=== PATIENT | female | born 1960 | race Caucasian/White ===

== ENCOUNTER 2025-03-20 09:35 | Inpatient (IN) | payer MEDICARE, MEDICAID ==
[~2025-03-20] VITALS: Ht 167.6 cm; Wt 77.3 kg
[~2025-03-20 09:35] MED LIST: ALBU2.5V9 IH; BACL20TA PO; DIPH25CA52 PO; DOXE100C21; ESCI20TA39 PO; HYDR-4353 PO; LEVO150T8 PO; OMEP20CA16 PO; SIMV-45 PO; TRAZ-256 PO
--- NOTE | 2025-03-20 10:19 | Physician Documentation ---
History of Present Illness ~ General Chief Complaint: Multiple Medical Complaints Stated Complaint: NO COMPLAINT Time Seen by MD: 09:43 Primary Medical Doctor: Carrie Source: patient, group home records (snf reports diagnosis of cholecystitis from prior hospitalization) History of Present Illness Initial Comments 64-year-old history of cholecystitis, renal calculus, O2 dependence, GERD, CHF, COPD, panic disorder, cognitive deficit, dysphagia, pulmonary embolism on elliquis p/w diarrhea. Unable to provide much history. Medication Reconciliation Allergies: Coded Allergies: erythromycin base (Verified Allergy, Severe, 09/01/14) clonazepam (Unverified Allergy, Unknown, 01/22/16) duloxetine (Unverified Allergy, Unknown, 01/22/16) Scheduled Baclofen (Baclofen), 1 TABLET PO BID, (Reported) Doxepin HCl (Doxepin HCl), DAILY, (Reported) Escitalopram Oxalate (Escitalopram Oxalate), 1 TABLET PO DAILY, (Reported) Levothyroxine Sodium (Levothyroxine Sodium), 1 TABLET PO DAILY, (Reported) Omeprazole (Omeprazole), 1 CAP PO DAILY, (Reported) Simvastatin (Simvastatin), 40 MG PO HS, (Reported) Trazodone HCl (Trazodone HCl), 1 TABLET PO TID, (Reported) Scheduled PRN Albuterol Sulfate (Albuterol Sulfate), 2.5 MG IH Q4H PRN for SOB or wheezing, (Reported) Diphenhydramine HCl (Diphenhydramine HCl), 1 CAP PO QID PRN for itching, (Reported) Hydrocodone Bit/Acetaminophen ([place] 10-325 Tablet), 1 TABLET PO BID PRN for moderate or severe pain, (Reported) Past Medical History Past Medical History: COPD, Thyroid (unspecified), Chronic Pain, Chronic Back Pain, Anxiety, Depression, Panic Disorder Past Surgical History: , tubal ligation Patient History: (COPD) Chronic obstructive lung disease Alcohol Use: None Drug Use: none Lives with: Family Lives In: Home Review of Systems Unable to obtain complete ROS: altered mental status Physical Exam Physical Exam Vital Signs: Temperature: 98.2, Source: Axillary, Heart Rate: 72, Respiratory Rate: 15, BP: 119/52, Pulse Oximetry: 98, Weight: 77.270 Physical Exam chronically ill no jvd moist mucous membranes awake alert moving all extremities Abdomen no abdominal tenderness no guarding no rebound Skin pink warm dry well-perfused no rash Progress Results/Orders Results/Orders Orders - SHAISTA MARS MD Covid19 Binax Poc Result Entry (03/20/25 10:15) Chest,Single View (03/20/25 10:15) Electrocardiogram (03/20/25 ) Ct Abdomen Pelvis (03/20/25 14:05) Straight Cath For Urine Sample (03/20/25 15:56) Ultrasound Of Abdomen (03/20/25 15:56) Cult Urine + [place] [address] (03/20/25 17:01) Completed Orders - SHAISTA MARS MD Cbc/Diff (03/20/25 10:15) CMP (03/20/25 10:15) Lipase (03/20/25 10:15) LA (03/20/25 10:15) Ringers Solution, Lacted (Lactated Ringe (03/20/25 10:15) Ondansetron Inj. (Zofran 4mg/2ml Vial) (03/20/25 10:15) Chest,Single View (03/20/25 10:15) PBNP (03/20/25 10:15) Hs Troponin I W Calculations (03/20/25 10:15) Ct Abdomen Pelvis (03/20/25 14:05) Iohexol 300mg/Ml 100ml Inj. (Omnipaque-3 (03/20/25 13:57) Ceftriaxone 2gm/D5w 50ml Bag (Rocephin 2 (03/20/25 16:30) Ua W/Microscopic, Cult If Ind (03/20/25 16:28) Medications Received in ER Medications (Trade) Dose Ordered Sig/Felisa Route PRN Reason Start Time Stop Time Status Last Admin Dose Admin Lactated Ringer's 1,000 ml @ 1,000 mls/hr ONCE ONCE IV 03/20/25 10:15 03/20/25 11:14 DC 03/20/25 10:55 1,000 MLS/HR (Zofran 4mg/2ml vial) 4 mg ONCE ONCE IV 03/20/25 10:15 03/20/25 10:18 DC 03/20/25 10:54 4 MG Ceftriaxone Sodium/Dextrose 50 ml @ 100 mls/hr ONCE ONCE IV 03/20/25 16:30 03/20/25 16:59 DC 03/20/25 17:44 100 MLS/HR Vital Signs 03/20/25 03/20/25 03/20/25 03/20/25 09:38 10:59 13:04 14:35 Temp 98.2 Pulse 72 77 81 82 Resp 15 22 22 20 B/P (MAP) 119/52 117/48 (71) 120/65 (83) 125/67 (86) Pulse Ox 98 100 91 96 O2 Flow Rate 3.0 4.0 4.0 03/20/25 03/20/25 03/20/25 15:37 16:43 17:47 Pulse 83 73 74 Resp 20 20 11 B/P (MAP) 122/58 (79) 124/64 (84) 121/58 (79) Pulse Ox 94 100 99 O2 Flow Rate 3.0 3.0 2.0 Laboratory Tests Test 03/20/25 10:40 03/20/25 11:00 03/20/25 16:28 White Blood Count 4.6 Red Blood Count 3.51 L Hemoglobin 10.3 L Hematocrit 31.8 L Mean Corpuscular Volume 90.7 Mean Corpuscular Hemoglobin 29.3 Mean Corpuscular Hemoglobin Concent 32.3 L Red Cell Distribution Width 15.6 H Platelet Count 502 H Mean Platelet Volume 6.4 L Neutrophils (%) (Auto) 72.9 Lymphocytes (%) (Auto) 11.6 L Monocytes (%) (Auto) 9.2 Eosinophils (%) (Auto) 4.2 Basophils (%) (Auto) 2.1 H Neutrophils # (Auto) 3.3 Lymphocytes # (Auto) 0.5 L Monocytes # (Auto) 0.4 Eosinophils # (Auto) 0.2 Basophils # (Auto) 0.1 CBC Comment Sodium Level 140 Potassium Level 3.9 Chloride Level 99 Carbon Dioxide Level 37.6 H Anion Gap 3 L Blood Urea Nitrogen 15 Creatinine 0.71 Estimated GFR/1.73 m2 82 BUN/Creatinine Ratio 21.1 H Glucose Level 96 Lactic Acid Level 0.7 Calcium Level 9.0 Total Bilirubin 0.3 Aspartate Amino Transf (AST/SGOT) 20 Alanine Aminotransferase (ALT/SGPT) 17 Alkaline Phosphatase 101 Troponin I High Sensitivity 8 Pro-B-Type Natriuretic Peptide 1346 H Total Protein 7.5 Albumin 2.8 L Globulin 4.7 H Albumin/Globulin Ratio 0.6 L Lipase 89 H Chemistry Comments SARS-CoV-2 Antigen (Rapid) Negative Urine Specimen Description Straight cath Urine Color Yellow Urine Clarity Turbid Urine pH 6.5 Urine Specific [place] 1.015 Urine Protein 100 H Urine Glucose (UA) Negative Urine Ketones Negative Urine Occult Blood Large H Urine Nitrite Negative Urine Bilirubin Small Urine Urobilinogen 1.0 Urine Leukocyte Esterase Trace H Urine RBC Tntc Urine WBC Tntc H Urine Squamous Epithelial Cells Few Urine Amorphous Phosphates 1+ Urine Bacteria 3+ Urine Culture Indicated Indicated Volume Urine Centrifuged 10 ml Urine Comment Microbiology Date/Time Source Procedure Growth Status 03/20/25 17:01 Urine Straight Cath Urine Culture - Preliminary Culture received. Resulted Medical Decision Making Additional information obtaine: N/A Findings 64-year-old female history of cognitive dysfunction, recent cholecystitis presenting for diarrhea. She is altered and unable to provide history only states that she does not feel well. no fever no abdominal tenderness certainl y no right upper quadrant tenderness. Labs and chest x-ray showing CHF exacerbation. She is on 3-4 L which apparently is her baseline. She does take her NC off frequently while here. CT showing questionable cholecystitis with pericholecystic fluid however she definitely has no right upper quadrant tenderness. She does however have shaila pyuria. Symptoms consistent wit urinary tract infection with metabolic encephalopathy. She will be admitted for further management Differential Diagnosis Cholecystitis, cystitis other causes of diarrhea Departure Disposition: ADMITTED INPATIENT Admitted to Inpatient Unit: to hospitalist Impression: Primary Impression: Metabolic encephalopathy Additional Impression: Cystitis Referrals: NO PRIMARY CARE PROVIDER (PCP) Signature Scribe Signature: deep Attestation: SHAISTA Oneil MD Mar 20, 2025 10:19
--- NOTE | 2025-03-20 10:51 | RADIOLOGY REPORT ---
DI CHEST,SINGLE VIEW, HISTORY: cough COMPARISON: None None TECHNICAL DATA: 1 view of the chest was obtained. FINDINGS: Lines and tubes: None Cardiomediastinal silhouette: Enlarged Pulmonary vasculature: Prominent Lung expansion: Low Lung airspace: normal Lung interstitium: normal Pleura: normal Pneumothorax: no Bones: Unremarkable Other: no IMPRESSION: Cardiomegaly with pulmonary vascular congestion.
[2025-03-20] MEDS: ondansetron/PF 4mg/2ml inj IV ONE (10:54)
[2025-03-20] MEDS: ringers solution, lacted 1,000 ML IV ONE (10:55)
[2025-03-20 10:57] LABS: MEAN PLATELET VOLUME 6.4 FL (7.4-10.4); RED CELL DISTRIBUTION WIDTH 15.6 % (11.5-14.5)
[2025-03-20 11:10] LABS: CREATININE 0.71 MG/DL (0.40-0.90); TOTAL CARBON DIOXIDE 37.6 MMOL/L (24-32); eCRCL 73 ML/MIN; eGFR 82 ML/MIN
[2025-03-20 11:18] LABS: PRO BRAIN NATRIURETIC PEPTIDE 1346 PG/ML (0-125)
[2025-03-20] MEDS ORDERED: iohexol 300mg/ml 100ml inj. ONE (13:57)
--- NOTE | 2025-03-20 14:34 | RADIOLOGY REPORT ---
Indication: abdominal pain Technique: CT axial images of the abdomen and pelvis are obtained with intravenous contrast. Coronal and sagittal reformats were obtained. Radiation Dose Information: CTDI volume is 30 mGy. Dose-length product is 1792 mGy*cm Comparison: None FINDINGS: Small pericardial effusion. Heart size at the upper limits of normal. Bilateral lower lobe consolidation/atelectasis. Small to moderate left and tiny right pleural effusions. Adrenal glands, spleen and pancreas unremarkable. Cholelithiasis. Gallbladder wall thickening. Hydropic gallbladder with pericholecystic stranding, gallbladder wall hyperemia. No enhancing hepatic lesion. Left kidney demonstrates no hydronephrosis. The right kidney demonstrates [id number] hydronephrosis secondary to a renal pelvic/ proximal ureteral calculus measuring 2.3 cm. There is associated hyperemia of the right ureter. Small hiatal hernia. Stomach is partially distended. Small bowel loops are normal in caliber. Rectal wall thickening, hyperemia with surrounding stranding, Presacral edema. There are also segments of large bowel wall thickening, hyperemia and surrounding stranding, mucosal hyperemia. No secondary signs for appendicitis. Abdominal aortic atherosclerotic disease. Bladder is partially distended. Trace free pelvic fluid. No inguinal lymphadenopathy. [id number] bilateral sacroiliac degenerative joint disease. Moderate to severe thoracolumbar degenerative disc disease. Chronic L2 compression deformity with 20% loss height. IMPRESSION: Cholelithiasis with hydropic/ distended gallbladder, gallbladder wall thickening and hyperemia, pericholecystic stranding. Findings are concerning for cholecystitis. Recommend HIDA scan to evaluate. Kyhv-jg-esansfbg right hydronephrosis secondary to a proximal right ureteral /renal pelvic calculus measuring 2.3 cm. There is associated hyperemia of the right ureter likely representing resultant urinary tract infection. Rectal wall thickening, mucosal hyperemia which can be seen with proctocolitis. Multiple other segments of large bowel wall thickening, mucosal hyperemia and surrounding stranding which can be seen with colitis, inflammatory bowel disease. Bilateral lower lobe consolidation/ atelectasis and small to moderate left, tiny right pleural effusions. Small hiatal hernia. Other findings as described.
[2025-03-20 16:53] LABS: LEUKOCYTE ESTERASE ,URINE TRACE (Neg); NITRITES, URINE NEGATIVE (Neg); OCCULT BLOOD,URINE LARGE (Neg)
[2025-03-20 16:55] LABS: UA COLLECTION TYPE STRAIGHT CATH
[2025-03-20 17:01] LABS: AMORPHOUS PHOSPHATES 1+; SQUAMOUS EPITHELIAL CELL,UR FEW /LPF (FEW)
[2025-03-20] MEDS: CefTRIAXone 2gm/D5W 50ml BAG 50 ML IV ONE (17:44)
[2025-03-20] MEDS ORDERED: potassium Cl 40MEQ/1/2NS 520ml 520 ML IV PRN (20:15)
[2025-03-20] MEDS ORDERED: magnesium sulf-water 2g/50mL 50 ML IV PRN (20:15)
[2025-03-20] MEDS ORDERED: magnesium hydroxide 30ml (MOM) UD suspension PO PRN (20:15)
[2025-03-20] MEDS ORDERED: magnesium sulf-water 4G/100mL 100 ML IV PRN (20:15)
[2025-03-20] MEDS ORDERED: ondansetron/PF 4mg/2ml inj IV PRN (20:15)
[2025-03-20] MEDS ORDERED: potassium Cl 20 mEq SR tablet PO PRN ×2 (20:15)
[2025-03-20] MEDS ORDERED: magnesium Cl slow-release 64mg tablet PO PRN (20:15)
[2025-03-20] MEDS ORDERED: mag hydrox/Alum hydrox/simeth 30ml oral suspension PO PRN (20:15)
[2025-03-20] MEDS: ringers solution, lacted 1,000 ML IV SCH (20:35)
--- NOTE | 2025-03-20 20:42 | HISTORY AND PHYSICAL-Residence ---
History & Physical Providers to CC Resident Creating Document: YAQUELINLAILAI BALDEV ~ History of Present Illness Primary Medical Doctor: Carrie Reason for Admit\Complaint: Diarrhea, AMS History of Present Illness 64-year-old female with history of cognitive dysfunction, recent cholecystitis, COPD, CHF, renal calculus, pulmonary embolism, hypothyroidism came to the ED from nursing facility for complaints of diarrhea. Patient was altered and drowsy, unable to obtain history from patient. History was obtained from ER staff. As per ER physician, patient stated that she was not feeling well and could not provide further history. As per her nursing facility records,she is on 3-4 L oxygen for COPD and Eliquis for pulmonary embolism. It is not clear if patient has urinary symptoms, but urinalysis is positive for UTI. She has no fever. She recently had cholecystitis, but there is no right upper quadrant tenderness. Nursing facility records show dark black stools. Allergies: Coded Allergies: erythromycin base (Verified Allergy, Severe, 09/01/14) clonazepam (Unverified Allergy, Unknown, 01/22/16) duloxetine (Unverified Allergy, Unknown, 01/22/16) Home Medications Home Medications Active Reported Trazodone HCl 100 Mg Tablet 1 Tablet PO TID Escitalopram Oxalate 20 Mg Tablet 1 Tablet PO DAILY Doxepin HCl 100 Mg Capsule DAILY Baclofen 20 Mg Tablet 1 Tablet PO BID Levothyroxine Sodium 150 Mcg Tablet 1 Tablet PO DAILY Simvastatin 40 Mg Tablet 40 Mg PO HS Omeprazole 20 Mg Capsule.dr 1 Cap PO DAILY Albuterol Sulfate (Albuterol) 2.5 Mg/3 Ml Vial.neb 2.5 Mg IH Q4H PRN Diphenhydramine HCl 25 Mg Capsule 1 Cap PO QID PRN [place] 10-325 Tablet (Acetaminophen/Hydrocodone Bitart) 1 Each Tablet 1 Tablet PO BID PRN Past Medical History Past Medical History Recent cholecystitis Renal calculus Cognitive dysfunction CHF COPD, on 3 L oxygen Hyperlipidemia GERD Dysphagia Anxiety/depression Panic disorder Chronic back pain Pulmonary embolism Hypothyroidism Pressure ulcer of right buttock Past Surgical History Surgical History Comment Tubal ligation Unable to obtain further surgical history Family History Family History: (COPD) Chronic obstructive lung disease Past Social History Social History Comment Unable to obtain social history Patient lives in nursing facility Alcohol Use: None Drug Use: None Lives with: Family Lives In: Home ROS ROS Unable to obtain ROS, patient is altered and drowsy Unable to obtain: altered mental status Exam Vitals: Vital Signs Date Time Temp Pulse Resp B/P (MAP) Pulse Ox O2 Delivery O2 Flow Rate FiO2 03/20/25 17:47 74 11 121/58 (79) 99 2.0 03/20/25 09:38 98.2 General: Altered and drowsy, resting in the bed, in no acute distress HEENT: Atraumatic, normocephalic, anicteric sclera ; pink conjunctiva, moist mucous membrane Neck: Trachea midline. Supple, full range of motion, no JVD Cardiac: Regular rhythm, regular rate with no murmurs all over the precordium. Respiratory: Equal breath sounds bilaterally, no tachypnea, no wheezing ,rub or rales Gastrointestinal: Abdomen symmetric, non-distended, soft, non-tender, normal bowel sounds, no masses Musculoskeletal: No pedal edema, no cyanosis Neurological: Unable to do neurological examination, patient was altered and drowsy Skin: Warm and dry Diagnostic Data Last Recorded Lab Results: 03/20/25 1040 03/20/25 1040 Additional Plan Altered mental status, most likely due to UTI Acute metabolic encephalopathy 2/2 UTI Right renal stone History of cognitive dysfunction, unknown baseline Vitals are stable WBC is normal, no SIRS criteria Urinalysis is positive for UTI, with trace leukocyte esterase, too many WBCs, 3+ bacteria and positive occult blood Procalcitonin and lactic acid are normal Electrolytes are normal, bicarbonate is mildly elevated-37.6 Liver enzymes are normal Creatinine and BUN are normal BUN/Cr is mildly elevated-21.1, probably due to dehydration Chest x-ray shows cardiomegaly with pulmonary vascular congestion Abdomen/pelvis CT shows wqqo-[id number] right hydronephrosis secondary to proximal right ureteral/renal pelvic calculus measuring 2.3 cm, associated hyperemia of the right ureter likely representing resultant UTI -Rectal wall thickening, mucosal hyperemia which can be seen with proctocolitis -cholelithiasis with hydropic/distended gallbladder, gallbladder wall thickening and hyperemia, pericholecystic stranding, concerning for cholecystitis -bilateral lower lobe consolidation/atelectasis and [id number]-fz-mqowyjzl left tiny right pleural effusion Plan: Started IV ceftriaxone 1 g Q 24 H Started IV LR 20 mL/hour in view of elevated BNP Follow up urine culture and blood culture Follow up echo Follow up stool occult test Follow up urine tox screen, ammonia Monitor BMP Acute CHF exacerbation, ejection fraction unknown BNP is elevated-1346 Chest x-ray shows cardiomegaly with pulmonary vascular congestion Troponin is normal, patient is refusing EKG Patient is not on GDMT drugs according to nursing facility records, follow up med reconciliation Follow up echo Started IV Lasix 40 mg daily Strict I's and O's, will adjust lasix acoordingly COPD, not in exacerbation Patient is on 3 L oxygen at home Oxygen saturation is 94 at 3 L O2, NC Recent history of cholecystitis Liver enzymes are normal Abdomen/pelvis CT shows cholelithiasis with hydropic/distended gallbladder, gallbladder wall thickening and hyperemia, pericholecystic stranding, concerning for cholecystitis No right upper quadrant tenderness Diarrhea, probably due to proctocolitis Unclear history Abdomen/pelvis CT shows Rectal wall thickening, mucosal hyperemia which can be seen with proctocolitis WBC is normal Bicarbonate is mildly elevated-37.6 BUN/Cr mildly elevated, probably due to dehydration Started IV LR 20 mL/hour in view of elevated BNP, we will re-evaluate in a.m. Normocytic hypochromic anemia H&H is 10.3/32.3 MCV is normal RDW is elevated She uses ferrous sulfate 325 mg b.i.d. at nursing facility Follow up iron profile Hyperlipidemia Follow up lipid panel She uses simvastatin 40 mg h.s. at nursing facility, we will continue after med reconciliation History of pulmonary embolism She takes Eliquis 5 mg b.i.d. Coagulation profile normal Follow up stool occult test and plan for continuation of Eliquis if negative Follow up D-dimer Hypothyroidism She takes levothyroxine 150 mcg, we will continue after med reconciliation Follow up TSH History of GERD Dysphagia Follow up BSS Aspiration precautions in place We will continue her home medication pantoprazole 40 mg after med reconciliation Anxiety/depression Panic disorder She uses trazodone 100 mg, Lexapro 10 mg at home, we will continue after med reconciliation Pressure ulcer in right buttock Wound care consulted Code status: Full code DVT prophylaxis: SCD GI prophylaxis: Pantoprazole 40 mg Pain management: Acetaminophen 325 mg/650 mg p.r.n. Diet/nutrition: Heart healthy diet Prognosis: Guarded Disposition: Continue medical management, follow up echo and urine cultures, PT eval and DC plan Resident attestation: The patient note has been reviewed and supervised by senior residents PGY-2/ PGY-3. Patient was seen, examined and discussed with attending physician. Yari Rolle MD Internal Medicine resident, PGY-1 Patient seen and evaluated Agree with plans as discussed with the resident Martha Simmons MD Date of Service: Mar 20, 2025 Billing Provider: MARTHA SIMMONS MD,YARI, RES Mar 20, 2025 20:42 MARTHA SIMMONS MD Mar 21, 2025 02:44
[2025-03-20 21:02] LABS: APTT 28 SECONDS (22-32); INR 1.0 INR
[2025-03-20 21:16] LABS: CREATININE 0.60 MG/DL (0.40-0.90); PHOSPHORUS 4.2 MG/DL (2.3-4.5); TOTAL CARBON DIOXIDE 37.3 MMOL/L (24-32); eCRCL 86 ML/MIN; eGFR > 90 ML/MIN
[2025-03-20] MEDS: furosemide 10 MG/1 ML 10ml inj IV SCH (22:47)
[2025-03-20 23:20] LABS: % IRON SATURATION 8 % (11-46)
[2025-03-21 01:30] VITALS: BP 123/61; PULSE 82; RESP 20; TEMP 97.6; O2SAT 92
[2025-03-21 02:00] VITALS: RESP 20; O2SAT 92
[2025-03-21 06:00] VITALS: BP 119/58; PULSE 82; RESP 16; TEMP 98.6; O2SAT 99
[2025-03-21 06:13] LABS: CHOL/HDL RATIO 2.6 (0.00-4.99); CREATININE 0.61 MG/DL (0.40-0.90); LDL CHOLESTEROL 86 MG/DL (50-100); TOTAL CARBON DIOXIDE 38.5 MMOL/L (24-32); eCRCL 85 ML/MIN; eGFR > 90 ML/MIN
[2025-03-21 06:15] LABS: MEAN PLATELET VOLUME 6.3 FL (7.4-10.4); RED CELL DISTRIBUTION WIDTH 15.7 % (11.5-14.5)
[2025-03-21] MEDS: K and/or MAG REPLACEMENT MC SCH (08:00)
[2025-03-21] MEDS ORDERED: azithromycin/NS 500mg/250ml 250 ML IV SCH (08:10)
[2025-03-21] MEDS ORDERED: metroNIDAZOLE-Flagyl 250mg/NS 50 ML IV SCH (08:15)
[2025-03-21] MEDS: docusate sod 100mg capsule PO SCH (08:30)
[2025-03-21] MEDS: CefTRIAXone/D5W-Rocephin 1gm 50 ML IV SCH (08:30)
[2025-03-21] MEDS: ringers solution, lacted 1,000 ML IV SCH (09:00)
[2025-03-21] MEDS: metroNIDAZOLE-Flagyl 500mg/NS 100 ML IV SCH (10:49)
--- NOTE | 2025-03-21 12:02 | ELECTROCARDIOGRAPH REPORT ---
[facility] Test Date: 2025-03-21 Test Time: 12:00:58 Pat Name: MANOJ AGOSTO Department: [facility] Patient ID: [facility]-[id number] Room: [place] [id number] A Gender: F [employer] Super[employer]: : [id number] Requested By: SHAISTA MARS Order Number: [id number] Reading MD: Dr. MARQUITA Meyers Measurements Intervals [place] Rate: 76 P: 66 [place]: 196 QRS: -37 QRSD: 135 T: 20 QT: 397 QTc: 447 Interpretive Statements Sinus rhythm Right bundle branch block Electronically Signed On 03-21-2025 18:04:[address] MARQUITA Meyers Please click the below link to view image of tracing.
[2025-03-21] MEDS: lactose-reduced food (Ensure Enlive) - 237ml bottle PO SCH (13:00)
--- NOTE | 2025-03-21 14:09 | RADIOLOGY REPORT ---
INDICATION: abd pain TECHNIQUE: Multiple real-time sonographic images of the abdomen were obtained. COMPARISON: CT CT ABDOMEN PELVIS W/ IV CONTRAST on DOS: 03/20/25 Findings/ IMPRESSION: Pancreas is obscured. Patient refused rest of the examination.
[2025-03-21 18:00] VITALS: BP 118/47; PULSE 71; RESP 17; TEMP 98.1; O2SAT 92
--- NOTE | 2025-03-21 19:33 | CONSULTATION REPORT ---
History of Present Illness Providers to CC ~ Reason for Admit\\Admit Dx: Diarrhea, AMS, right ureteral stone Refering MD: resident team History of Present Illness 64yo F who is a very poor historian admitted due to report of AMS and diarrhea. The patient is somewhat conversive and oriented to person and place, but she does seem quite confused during conversation and repeatedly avoids answering questions with very long pauses after a question is asked. However, she explicitly states that she makes her own medical decisions and does not want me to contact any of her family/emergency contacts to discuss medical decision making. The patient is unable to tell me why she is in the hospital or why she presented to the hospital. She denies any pain, fever, chills, nausea, vomiting, diarrhea, or urinary complaints. She did point out that she unexpectedly had a bowel movement in bed while I was talking to her. She denies any prior history of kidney stone. Per the hospital records, she came in due to AMS, diarrhea, and noted to have dark black stools at her facility. She is unable to tell me where she lives or how she got to the hospital. CT abd pelvis shows a large right proximal ureteral stone measuring approximately 2.3cm with very mild right hydronephrosis. She is afebrile and hemodynamically stable. WBC normal. Creatinine normal 0.6. UA is dirty with concern for UTI, and urine culture is pending. Per the primary team/resident team, the patient has a history of CHF, COPD, pulmonary embolism, and currently has elevated BNP with concern for CHF exacerbation. Echo pending. The patient is currently on O2 nasal cannula. Unclear if this is baseline. Again, the patient is a very poor historian and seems to have difficulty with memory and with word finding, although she insists that she understands and makes her own medical decisions. I discussed with her possible right ureteral stent placement given the large right ureteral stone and question of UTI. Furthermore, the stone appears too large to pass spontaneously. When I discussed with her the UA results and concern for possible UTI, she tells me that she does not have a UTI. She became very frustrated while we were discussing possible surgery for right ureteral stent placement, and subsequent need for outpatient surgery for stone extraction, as well as stent removal in the office, including the risks/benefits/alternatives to surgery, she ultimately told me to "just freaking do it." Allergies: Coded Allergies: erythromycin base (Verified Allergy, Severe, 09/01/14) clonazepam (Unverified Allergy, Unknown, 01/22/16) duloxetine (Unverified Allergy, Unknown, 01/22/16) Home Medications Home Medications Active Reported Trazodone HCl 100 Mg Tablet 1 Tablet PO TID Escitalopram Oxalate 20 Mg Tablet 1 Tablet PO DAILY Doxepin HCl 100 Mg Capsule DAILY Baclofen 20 Mg Tablet 1 Tablet PO BID Levothyroxine Sodium 150 Mcg Tablet 1 Tablet PO DAILY Simvastatin 40 Mg Tablet 40 Mg PO HS Omeprazole 20 Mg Capsule.dr 1 Cap PO DAILY Albuterol Sulfate (Albuterol) 2.5 Mg/3 Ml Vial.neb 2.5 Mg IH Q4H PRN Diphenhydramine HCl 25 Mg Capsule 1 Cap PO QID PRN [place] 10-325 Tablet (Acetaminophen/Hydrocodone Bitart) 1 Each Tablet 1 Tablet PO BID PRN Past Medical History Medical History Comment CHF, COPD, PE Past Surgical History Surgical History Comment unable to determine as patient could not answer the question, but H&P indicates history of tubal ligation and C section Past Family History Family History: (COPD) Chronic obstructive lung disease Past Social History Social History Comment she does have children but could not give me information on her living situation and did not want me to contact her children/family to discuss medical decisions Physical Exam Last Vital Signs Recorded: Temperature: 98.1, Source: Oral, Heart Rate: 71, Respiratory Rate: 17, BP: 118/47, Pulse Oximetry: 92, Weight: 77.270 Results Diagram Lab Result Diagram: 03/21/2533 03/21/2533 Assessment/Plan Problems/Diagnosis: (1) Ureteral stone Assessment & Plan: 64yo F with confusion (baseline mental status is unclear) reportedly brought to the hospital due to AMS, diarrhea, dark black stools. CT abd pelvis shows a large 2.3cm right proximal ureteral stone with very mild right hydronephrosis. Possible UTI - AFVSS, WBC normal. Creatinine normal - UA showing +blood, +LE, negative nitrite. Possible UTI. Urine culture pending. Empiric antibiotics for now - CT reviewed and discussed with patient. Large right proximal ureteral stone 2.3cm in size is too large to pass spontaneously, and has likely been present in the proximal ureter for some time. There is very mild right hydronephrosis and therefore, does not appear to be causing severe obstruction. However, in the setting of UTI, an obstructing ureteral stone does increase the risk of sepsis. Given the concern for infection as well as large stone, ureteral stent placement may be appropriate at this time, but stone extraction would be postponed until a later date - I discussed with her cystoscopy, right retrograde pyelogram, right ureteral stent placement extensively, including details of the procedure, risks, benefits, alternatives. She ultimately stated that she wishes to proceed with surgery tomorrow, but I am not sure if the patient is truly understanding my explanations of all of this - I would appreciate input from the primary team regarding patient's mental status and ability to give consent for surgery, as well as cardiac clearance/risk stratification for general anesthesia - At this time, I do not feel that ureteral stent placement is an emergency given her normal vital signs, normal WBC, normal renal function. However, there is concern for UTI, which may warrant stent placement on an urgent basis. If there are any acute changes in her clinical condition to suggest severe or worsening sepsis, then the procedure may become more urgent/emergent - Will keep NPO after midnight for possible surgery tomorrow, pending clearance from primary team - Will re-assess patient in the morning YESENIA MORROW MD Mar 21, 2025 19:33
--- NOTE | 2025-03-21 19:43 | CARDIOLOGY REPORT ---
APPROVED REPORT EXAM: Comprehensive 2D, Doppler, and color-flow Echocardiogram. Patient Location: 401 Blood Pressure: 119/56 mmHg Heart Rate: 71 bpm Indications Cardiomegaly Congestive Hear Failure COPD NO CASE MONITOR No Previous ECHO 2D Dimensions LA Diam 3.4 cm IVSd 1.2 (0.7-1.1cm) LVDd 2.8 cm PWd 1.2 (0.7-1.1cm) IVSs 1.4 (0.8-1.2cm) LVDs 2.0 (2.5-4.0cm) PWs 1.5 (0.8-1.2cm) LVOT Diameter 1.84 (1.8-2.4cm) LVEF(%) 61.3 (>50%) IVC 17.10 mm FS (%) 31.5 % SV 18.9 ml CO 1.9 L/min M-Mode Dimensions Left Atrium(MM) 4.65 (2.5-4.0cm) Aortic Root 2.59 (2.2-3.7cm) Aortic Cusp Exc 1.94 (1.5-2.0cm) MV EPSS 0.8 (<0.5cm) Aortic Valve AoV Peak Eric. 183.9 cm/s AoV VTI 33.4 cm AO Peak GR. 13.5 mmHg AO Mean GR. 6 mmHg LVOT VTI 25.75 cm LVOT Peak Eric. 138.7 cm/s KENJI(VTI)/BSA 2.05 cm2/m2 KENJI (VTI) 2.05 cm2 AV DI 0.77 % Mitral Valve MV E Velocity 111.0 cm/s MV Peak Gr. 11 mmHg MV DECEL TIME 200 ms MV A Velocity 136.1 cm/s MV PHT 68 ms E/A Ratio 0.8 MVA (PHT) 3.24 cm2 MV VMax 167.4 cm/s TDI Lateral E' P. V 8.14 cm/s E/Lateral E' 13.6 Tricuspid Valve TR P. Velocity 249 cm/s RAP ESTIMATE 10 mmHg TR Peak Gr. 25 mmHg RVSP 35 mmHg LEFT VENTRICLE Normal LV size and function. Mild concentric hypertrophy. LVEF is 60-65%. RIGHT VENTRICLE Right ventricle is mildly dilated. Elevated right heart pressures with an RVSP of 35 mmHg. ATRIA Left atrium is mild to moderately dilated with adequate function. AORTIC VALVE Trileaflet AV appears mildly sclerotic without stenosis. Trivial insufficiency. MITRAL VALVE Mitral valve leaflets are mildly thickened with mild annular calcification. No stenosis. Trace regurgitation. TRICUSPID VALVE The tricuspid valve is normal in structure with moderate regurgitation. PULMONIC VALVE Pulmonic valve is grossly normal in structure with physiologic insufficiency. GREAT VESSELS The aortic root is normal in size. IVC is normal in size. PERICARDIUM Trace loculated pericardial effusion without hemodynamic compromise. No echo indications of pericardial tamponade. Other Information Study Quality: Adequate Conclusion Normal LV size and function. Mild concentric hypertrophy. LVEF is 60-65%. Right ventricle is mildly dilated. Elevated right heart pressures with an RVSP of 35 mmHg. Left atrium is mild to moderately dilated with adequate function. Trileaflet AV appears mildly sclerotic without stenosis. Trivial insufficiency. Mitral valve leaflets are mildly thickened with mild annular calcification. No stenosis. Trace regurgitation. The tricuspid valve is normal in structure with moderate regurgitation. Pulmonic valve is grossly normal in structure with physiologic insufficiency. Trace loculated pericardial effusion without hemodynamic compromise. No echo indications of pericardial tamponade.
--- NOTE | 2025-03-21 21:22 | PROGRESS NOTE- Residence ---
Progress Note - Resident Providers to CC Resident Creating Document: JULIOCESAR COX RES ~ Antibiotic Timeout Antibiotic Ordered?: Yes Subjective Patient was examined at bedside, she was sleeping at the time of examination. She was drowsy and on 3 L oxygen. Consulted Urology Dr. Rojo in view of patient's UTI and Large right proximal ureteral stone 2.3cm in size Objective Vital Signs Date Time Temp Pulse Resp B/P (MAP) Pulse Ox O2 Delivery O2 Flow Rate FiO2 03/21/25 18:30 85 03/21/25 18:00 98.1 17 118/47 (70) 92 Nasal Cannula 3.0 Result Diagram: 03/21/2553203/21/25532 General: Patient is lying in bed, appears somnolent . No signs of acute discomfort. HEENT: Head is atraumatic and normally shaped. Sclera are clear without jaundice; conjunctiva are pink. Oral mucosa is moist. Neck: Trachea is centrally positioned. No jugular venous distension noted. Cardiac: Heart rate and rhythm are regular. No audible murmurs across the chest. Respiratory: Breath sounds are clear and equal on both sides. No rapid breathing, wheezes, crackles, or pleural rubs detected. Gastrointestinal: Abdomen is flat and soft, with no tenderness or distension. Bowel sounds are present and normal. No abnormal masses palpated. Musculoskeletal: No swelling of the lower extremities. No signs of cyanosis. Neurological: Neurological assessment deferred due to patient's drowsy Skin: Skin is warm and dry to the touch. Coagulation Studies Laboratory Tests Test 03/20/25 20:30 Prothrombin Time 10.6 SECONDS (9.0-12.0) INR International Normalized Ratio 1.0 INR Activated Partial Thromboplast Time 28 SECONDS (22-32) D-Dimer 1.54 MG/L FEU (0-0.50) H D-Dimer Comment Coagulation Comments Advance Care Planning Advanced Care plannin - 30 Minutes Assessment Assessment Altered mental status, most likely due to UTI Acute metabolic encephalopathy 2/2 UTI Right renal stone History of cognitive dysfunction, unknown baseline Vitals are stable WBC is normal, no SIRS criteria Urinalysis is positive for UTI, with trace leukocyte esterase, too many WBCs, 3+ bacteria and positive occult blood Procalcitonin and lactic acid are normal Electrolytes are normal, bicarbonate is mildly elevated-37.6 Liver enzymes are normal Creatinine and BUN are normal BUN/Cr is mildly elevated-21.3, probably due to dehydration Chest x-ray shows cardiomegaly with pulmonary vascular congestion Abdomen/pelvis CT shows [id number] right hydronephrosis secondary to proximal right ureteral/renal pelvic calculus measuring 2.3 cm, associated hyperemia of the right ureter likely representing resultant UTI -Rectal wall thickening, mucosal hyperemia which can be seen with proctocolitis -cholelithiasis with hydropic/distended gallbladder, gallbladder wall thickening and hyperemia, pericholecystic stranding, concerning for cholecystitis -bilateral lower lobe consolidation/atelectasis and [id number] left tiny right pleural effusion Continue IV ceftriaxone 1 g Q 24 H Continue IV LR 70 mL/hour Follow up urine culture and blood culture Follow up stool occult test Follow up urine tox screen Consulted Urology Dr. Rojo, urology Dr. Rojo evaluated the patient recommended right ureteral stent to prevent infection and defer stone removal until patient is medically cleared, and patient will be NPO from midnight Monitor BMP Acute diastolic heart failure with preserved ejection fraction 60-65 % RVSP-35 mmHg BNP is elevated-1346 Chest x-ray shows cardiomegaly with pulmonary vascular congestion Troponin is normal Echocardiogram shows-mild concentric hypertrophy, LVEF 60-65%, RVSP 35 mmHg COPD, not in exacerbation Patient is on 3 L oxygen at home Oxygen saturation is 94 at 4 L O2, NC Recent history of cholecystitis Liver enzymes are normal Abdomen/pelvis CT shows cholelithiasis with hydropic/distended gallbladder, gallbladder wall thickening and hyperemia, pericholecystic stranding, concerning for cholecystitis No right upper quadrant tenderness Abdominal ultrasound: Pancreas is obscured.Patient refused rest of the examination. Diarrhea, probably due to proctocolitis Abdomen/pelvis CT shows Rectal wall thickening, mucosal hyperemia which can be seen with proctocolitis WBC is normal Bicarbonate 38.5 BUN/Cr mildly elevated, probably due to dehydration Started on IV Flagyl 500 mg IV q.8h Started ringer lactate IV 75 mL/hour Follow up with stool WBC, stool ova and parasite, stool occult blood, stool culture Normocytic hypochromic anemia H&H is 8.3/25.7 MCV is normal RDW is elevated Serum iron 20,-TIBC-246, % saturation -8 Continue monitoring CBC, PRBC if hemoglobin less than 6.9 Hyperlipidemia LDL 86 Continued home med simvastatin 40 mg h.s. History of pulmonary embolism She takes Eliquis 5 mg b.i.d. Coagulation profile normal D-dimer 1.54 Follow up stool occult test and plan for continuation of Eliquis if negative Hypothyroidism Poorly controlled-TSH 30.89 Free T4 0.78 Continue home levothyroxine 150 mcg History of GERD Dysphagia Aspiration precautions in place Started IV pantoprazole 40 mg b.i.d. Anxiety/depression Panic disorder Continue trazodone 100 mg, Lexapro 10 mg Pressure ulcer in right buttock Wound care consulted Unspecified protein/calorie malnutrition Started ensure and live 237 mL p.o. t.i.d. Code status: Full code DVT prophylaxis: SCD GI prophylaxis: Pantoprazole 40 mg Pain management: Acetaminophen 325 mg/650 mg p.r.n. Diet/nutrition: NPO after midnight Prognosis: Guarded Disposition-patient will be monitored in the ortho, Dr. Rojo is on board, patient is on NPO for possible ureteral stent placement tomorrow Juliocesar Cox PGY1-Internal Medicine Resident Date of Service: Mar 21, 2025 Billing Provider: CRISTIAN BAIG MD,JULIOCESAR, RES Mar 21, 2025 21:22
[2025-03-21 22:00] VITALS: BP 118/43; PULSE 61; RESP 13; TEMP 97.7; O2SAT 100
[2025-03-21 23:37] LABS: URINE AMPHETAMINE SCREEN NEGATIVE (Neg); URINE BARBITUATE SCREEN NEGATIVE (Neg); URINE BENZODIAZEPINES SCREEN NEGATIVE (Neg); URINE CANNABINOID SCREEN NEGATIVE (Neg); URINE COCAINE SCREEN NEGATIVE (Neg); URINE METHADONE SCREEN NEGATIVE (Neg); URINE OPIATE SCREEN NEGATIVE (Neg); URINE PHENCYCLIDINE SCREEN NEGATIVE (Neg)
[2025-03-22 06:00] VITALS: BP 116/52; PULSE 61; RESP 16; TEMP 97.7; O2SAT 97
[2025-03-22 06:21] LABS: CREATININE 0.63 MG/DL (0.40-0.90); TOTAL CARBON DIOXIDE 39.2 MMOL/L (24-32); eCRCL 82 ML/MIN; eGFR > 90 ML/MIN
[2025-03-22 06:25] LABS: MEAN PLATELET VOLUME 6.7 FL (7.4-10.4); RED CELL DISTRIBUTION WIDTH 15.5 % (11.5-14.5)
[2025-03-22 08:00] VITALS: RESP 14; O2SAT 98
[2025-03-22] MEDS: levoTHYROXINE 75mcg tablet PO SCH (08:29)
[2025-03-22] MEDS: ESCITALOPRAM 10 mg tablet 10 MG TABLET PO SCH (08:29)
--- NOTE | 2025-03-22 08:58 | PROGRESS NOTE ---
Progress Progress Note: No complaints. Denies pain, urinary symptoms, fever. She had a very poor recollection of our discussion last night regarding surgery. She states she feels well and feels like she could go home. I have tried to call her emergency contacts listed in the chart and cannot reach anyone else to give me more information about her baseline mental status/decision making capability, but she is not demonstrating to me the capacity to consent for surgery at this time, so we will hold off on surgical intervention and plan for outpatient follow up later for ureteral stone. Problem\Assessment\Plan Problems/Diagnosis: (1) Ureteral stone Assessment & Plan: 64yo F with confusion (baseline mental status is unclear) reportedly brought to the hospital due to AMS, diarrhea, dark black stools. CT abd pelvis shows a large 2.3cm right proximal ureteral stone with very mild right hydronephrosis. Possible UTI - AFVSS, WBC normal. Creatinine normal. Clinically asymptomatic other than confusion, although I am suspecting that this is her baseline rather than acute encephalopathy. Defer to primary team for further input on this situation - UA showing +blood, +LE, negative nitrite. Possible UTI. Urine culture pending. Empiric antibiotics for now - I discussed with her cystoscopy, right retrograde pyelogram, right ureteral stent placement extensively, including details of the procedure, risks, benefits, alternatives. I discussed this with her extensively last night and again this morning, and she is not demonstrating understanding of the procedure. At this time, she is not showing any overt signs of severe infection or sepsis, and therefore, stent placement is not an emergency. Unfortunately, the patient is not demonstrating adequate decision making capability and I am unable to get in touch with any family member/caregiver to help with decision making. The patient states that she makes her own decisions, but I do not feel that this is appropriate based on the two conversations I have had with her so far - May consider social work consult regarding her living situation/medical decision making capability. The patient is not even able to tell me where she lives and states she does not have any family members. 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 Ok to resume diet - Will tentatively plan for outpatient follow up after discharge Results/Orders Result Diagram: 03/22/25 0456 03/22/25 0456 Dietary Evaluation Comments: S 03/26 Bdn0DM Pt seen by wound care, per note pt with extensive scarring to the sacrococcygeal area indicative of previous pressure injury. No open wounds identified at this time. Will continue to follow. YESENIA MORROW MD Mar 22, 2025 08:58
[2025-03-22 10:00] VITALS: BP 122/41; PULSE 56; RESP 16; TEMP 98.2; O2SAT 95
[2025-03-22] MEDS: naphazoline/pheniramine eye 1 DROP BOTTLE EACHEYE PRN (10:19)
[2025-03-22] MEDS ORDERED: albuterol 2.5 MG/3 ML nebule NEB PRN (12:30)
[2025-03-22 15:26] LABS: OCCULT BLOOD STOOL NEGATIVE (Neg)
--- NOTE | 2025-03-22 15:45 | PROGRESS NOTE- Residence ---
Progress Note - Resident Providers to CC Resident Creating Document: JULIOCESAR COX RES ~ Antibiotic Timeout Antibiotic Ordered?: Yes Subjective Patient was examined at bedside, she was sleeping at the time of examination. She was drowsy and on 3 L oxygen. Consulted Urology Dr. Rojo in view of patient's UTI and Large right proximal ureteral stone 2.3cm in size, recommended outpatient f/u for renal cyst as patient is not capable of taking medical decisions. Objective Vital Signs Date Time Temp Pulse Resp B/P (MAP) Pulse Ox O2 Delivery O2 Flow Rate FiO2 03/22/25 10:00 98.2 56 16 122/41 (68) 95 Nasal Cannula 2.0 Result Diagram: 03/22/2545503/22/25455 General: Patient is lying in bed, appears somnolent . No signs of acute discomfort. HEENT: Head is atraumatic and normally shaped. Sclera are clear without jaundice; conjunctiva are pink. Oral mucosa is moist. Neck: Trachea is centrally positioned. No jugular venous distension noted. Cardiac: Heart rate and rhythm are regular. No audible murmurs across the chest. Respiratory: Breath sounds are clear and equal on both sides. No rapid breathing, wheezes, crackles, or pleural rubs detected. Gastrointestinal: Abdomen is flat and soft, with no tenderness or distension. Bowel sounds are present and normal. No abnormal masses palpated. Musculoskeletal: No swelling of the lower extremities. No signs of cyanosis. Neurological: Neurological assessment deferred due to patient's drowsy Skin: Skin is warm and dry to the touch. Coagulation Studies Laboratory Tests Test 03/20/25 20:30 Prothrombin Time 10.6 SECONDS (9.0-12.0) INR International Normalized Ratio 1.0 INR Activated Partial Thromboplast Time 28 SECONDS (22-32) D-Dimer 1.54 MG/L FEU (0-0.50) H D-Dimer Comment Coagulation Comments Advance Care Planning Advanced Care plannin - 30 Minutes Assessment Assessment 64 years old female is currently evaluated for AMS 2/2 UTI Altered mental status, most likely due to UTI Acute metabolic encephalopathy 2/2 UTI Right renal stone History of cognitive dysfunction, unknown baseline Vitals are stable WBC is normal, no SIRS criteria Urinalysis is positive for UTI, with trace leukocyte esterase, too many WBCs, 3+ bacteria and positive occult blood Procalcitonin and lactic acid are normal Electrolytes are normal, bicarbonate is mildly elevated-37.6 Liver enzymes are normal Creatinine and BUN are normal BUN/Cr is mildly elevated-21.3, probably due to dehydration Chest x-ray shows cardiomegaly with pulmonary vascular congestion Abdomen/pelvis CT shows [id number] right hydronephrosis secondary to proximal right ureteral/renal pelvic calculus measuring 2.3 cm, associated hyperemia of the right ureter likely representing resultant UTI -Rectal wall thickening, mucosal hyperemia which can be seen with proctocolitis -cholelithiasis with hydropic/distended gallbladder, gallbladder wall thickening and hyperemia, pericholecystic stranding, concerning for cholecystitis -bilateral lower lobe consolidation/atelectasis and [id number]-[id number] left tiny right pleural effusion urine culture is positive for Gram positive cocci blood culture preliminary no growth Continue IV ceftriaxone 1 g Q 24 H Continue IV LR 70 mL/hour urine tox screen-negative Consulted Urology Dr. Rojo in view of patient's UTI and Large right proximal ureteral stone 2.3cm in size, recommended outpatient f/u for renal cyst as patient is not capable of taking medical decisions. Monitor BMP Acute diastolic heart failure with preserved ejection fraction 60-65 % RVSP-35 mmHg BNP is elevated-1346 Chest x-ray shows cardiomegaly with pulmonary vascular congestion Troponin is normal Echocardiogram shows-mild concentric hypertrophy, LVEF 60-65%, RVSP 35 mmHg COPD, not in exacerbation Patient is on 3 L oxygen at home Oxygen saturation is 94 at 4 L O2, NC Recent history of cholecystitis Liver enzymes are normal Abdomen/pelvis CT shows cholelithiasis with hydropic/distended gallbladder, gallbladder wall thickening and hyperemia, pericholecystic stranding, concerning for cholecystitis No right upper quadrant tenderness Abdominal ultrasound: Pancreas is obscured.Patient refused rest of the examination. Diarrhea, probably due to proctocolitis Abdomen/pelvis CT shows Rectal wall thickening, mucosal hyperemia which can be seen with proctocolitis WBC is normal Bicarbonate 39.2 Stool occult blood is negative Continue on IV Flagyl 500 mg IV q.8h Continue ringer lactate IV 75 mL/hour Follow up with stool WBC, stool ova and parasite, stool occult blood, stool culture Normocytic hypochromic anemia Likely due to anemia of chronic disease Hb;8.9 Serum iron 20,-TIBC-246, % saturation -8 Continue monitoring CBC PRBC if hemoglobin less than 6.9 Hyperlipidemia LDL 86 Continued home med simvastatin 40 mg h.s. Hypothyroidism Poorly controlled-TSH 30.89 Free T4 0.78 Continue home levothyroxine 150 mcg History of GERD Dysphagia Aspiration precautions in place Started IV pantoprazole 40 mg b.i.d. Anxiety/depression Panic disorder Continue trazodone 100 mg, Lexapro 10 mg Pressure ulcer in right buttock Wound care consulted Unspecified protein/calorie malnutrition Started ensure and live 237 mL p.o. t.i.d. Code status: Full code DVT prophylaxis: SCD GI prophylaxis: Pantoprazole 40 mg Pain management: Acetaminophen 325 mg/650 mg p.r.n. Diet/nutritiont: Heart healthy diet Prognosis: Guarded Disposition- Juliocesar Cox PGY1-Internal Medicine Resident Date of Service: Mar 22, 2025 Billing Provider: CRISTIAN BAIG MD, SATISH, RES Mar 22, 2025 15:45
[2025-03-22 18:37] VITALS: BP 116/52; PULSE 67; RESP 14; TEMP 97.6; O2SAT 95
[2025-03-22 22:00] VITALS: BP 124/60; PULSE 71; RESP 16; TEMP 97.9; O2SAT 99
[2025-03-23 05:39] LABS: MEAN PLATELET VOLUME 6.9 FL (7.4-10.4); RED CELL DISTRIBUTION WIDTH 15.8 % (11.5-14.5)
[2025-03-23 06:00] VITALS: BP 111/53; PULSE 74; RESP 16; TEMP 97.7; O2SAT 98
[2025-03-23 06:05] LABS: CREATININE 0.61 MG/DL (0.40-0.90); TOTAL CARBON DIOXIDE 36.3 MMOL/L (24-32); eCRCL 85 ML/MIN; eGFR > 90 ML/MIN
[2025-03-23 08:00] VITALS: RESP 12; O2SAT 98
[2025-03-23 10:00] VITALS: BP 126/48; PULSE 73; RESP 14; TEMP 97.2; O2SAT 90
[2025-03-23 12:44] LABS: ABG BASE EXCESS 10.1 mmol/L (-2.0-3.0); ABG HCO3 35.8 mmol/L (21.0-28.0); ABG OXYGEN SATURATION 93.4 % (94.0-98.0); ABG PCO2 (T) 55.4 mmHg (32.0-45.0); ABG PH (T) 7.428 (7.350-7.450); ABG PO2 (T) 69.3 mmHg (83.0-108.0); ALLEN'S TEST POSITIVE; FCOHb 2.2 % (0.5-1.5); FHHb 6.4 % (0.0-5.0); FIO2 32.0 mmHg/%; FLOW 3 L/min; FMetHb 0.2 % (0.0-1.5); FO2Hb 91.2 % (94.0-98.0); MODE NASAL CANNULA; PATIENT TEMPERATURE 37.0; TOTAL HEMOGLOBIN 8.8 G/dl (12.0-16.0)
[2025-03-23] MEDS: vancomycin/NS 1 GM ADD-VANTAGE 250 ML IV SCH (14:42)
[2025-03-23 18:00] VITALS: BP 145/55; PULSE 65; RESP 17; TEMP 97.7; O2SAT 100
[2025-03-23 20:10] VITALS: RESP 18
--- NOTE | 2025-03-23 21:05 | PROGRESS NOTE- Residence ---
Progress Note - Resident Providers to CC Resident Creating Document: JULIOCESAR COX RES ~ Antibiotic Timeout Antibiotic Ordered?: Yes Subjective Patient was examined at bedside, patient is alert, answering most of the questions. She is on 3 L oxygen with SpO2 of 98. We spoke with the patients daughter Darcie regarding the patients condition. She is not the patients power of deputy prosecuting attorney (POA), but she expressed willingness to come to the hospital tomorrow for further discussion Objective Vital Signs Date Time Temp Pulse Resp B/P (MAP) Pulse Ox O2 Delivery O2 Flow Rate FiO2 03/23/25 10:00 97.2 73 14 126/48 (74) 90 Room Air 03/23/25 08:00 3.0 Result Diagram: 03/23/2544203/23/25442 General: Patient is lying in bed, appears somnolent . No signs of acute discomfort. HEENT: Head is atraumatic and normally shaped. Sclera are clear without jaundice; conjunctiva are pink. Oral mucosa is moist. Neck: Trachea is centrally positioned. No jugular venous distension noted. Cardiac: Heart rate and rhythm are regular. No audible murmurs across the chest. Respiratory: Breath sounds are clear and equal on both sides. No rapid breathing, wheezes, crackles, or pleural rubs detected. Gastrointestinal: Abdomen is flat and soft, with no tenderness or distension. Bowel sounds are present and normal. No abnormal masses palpated. Musculoskeletal: No swelling of the lower extremities. No signs of cyanosis. Neurological: Neurological assessment deferred due to patient's drowsy Skin: Skin is warm and dry to the touch. Coagulation Studies Laboratory Tests Test 03/20/25 20:30 Prothrombin Time 10.6 SECONDS (9.0-12.0) INR International Normalized Ratio 1.0 INR Activated Partial Thromboplast Time 28 SECONDS (22-32) D-Dimer 1.54 MG/L FEU (0-0.50) H D-Dimer Comment Coagulation Comments Assessment Assessment 64 years old female is currently evaluated for AMS 2/2 UTI Altered mental status, most likely due to UTI Acute metabolic encephalopathy 2/2 UTI Right renal stone History of cognitive dysfunction, unknown baseline Vitals are stable WBC is normal, no SIRS criteria Urinalysis is positive for UTI, with trace leukocyte esterase, too many WBCs, 3+ bacteria and positive occult blood Procalcitonin and lactic acid are normal Electrolytes are normal, bicarbonate is mildly elevated-37.6 Liver enzymes are normal Creatinine and BUN are normal BUN/Cr is mildly elevated-21.3, probably due to dehydration Chest x-ray shows cardiomegaly with pulmonary vascular congestion Abdomen/pelvis CT shows almo-eo-uisqnyjz right hydronephrosis secondary to proximal right ureteral/renal pelvic calculus measuring 2.3 cm, associated hyperemia of the right ureter likely representing resultant UTI -Rectal wall thickening, mucosal hyperemia which can be seen with proctocolitis -cholelithiasis with hydropic/distended gallbladder, gallbladder wall thickening and hyperemia, pericholecystic stranding, concerning for cholecystitis -bilateral lower lobe consolidation/atelectasis and sroun-um-luzritgg left tiny right pleural effusion urine culture is positive for Gram positive cocci blood culture preliminary no growth urine tox screen-negative Spoke with patient's daughter regarding patient continue and management but she informed that the her mother does not have POA. So we requested her to come to hospital tomorrow Urine cultures are positive for Aerococcus Urinae, consulted infectious she recommended continuation of vancomycin Continue IV ceftriaxone 1 g Q 24 H Continue IV LR 70 mL/hour Acute diastolic heart failure with preserved ejection fraction 60-65 % RVSP-35 mmHg BNP is elevated-1346 Chest x-ray shows cardiomegaly with pulmonary vascular congestion Troponin is normal Echocardiogram shows-mild concentric hypertrophy, LVEF 60-65%, RVSP 35 mmHg Continue monitoring the patient COPD, not in exacerbation Patient is on 3 L oxygen at home Oxygen saturation is 94 at 4 L O2, NC Recent history of cholecystitis Liver enzymes are normal Abdomen/pelvis CT shows cholelithiasis with hydropic/distended gallbladder, gallbladder wall thickening and hyperemia, pericholecystic stranding, concerning for cholecystitis No right upper quadrant tenderness Abdominal ultrasound: Pancreas is obscured.Patient refused rest of the examination. Diarrhea, probably due to proctocolitis Abdomen/pelvis CT shows Rectal wall thickening, mucosal hyperemia which can be seen with proctocolitis WBC is normal Bicarbonate 39.2 Stool occult blood is negative Continue on IV Flagyl 500 mg IV q.8h Continue ringer lactate IV 75 mL/hour Follow up with stool WBC, stool ova and parasite, stool occult blood, stool culture Normocytic hypochromic anemia Likely due to anemia of chronic disease Hb;8.9 Serum iron 20,-TIBC-246, % saturation -8 Continue monitoring CBC PRBC if hemoglobin less than 6.9 Hyperlipidemia LDL 86 Continued home med simvastatin 40 mg h.s. Hypothyroidism Poorly controlled-TSH 30.89 Free T4 0.78 Follow up with TPO antibodies Continue home levothyroxine 150 mcg History of GERD Dysphagia Aspiration precautions in place Started IV pantoprazole 40 mg b.i.d. Anxiety/depression Panic disorder Continue trazodone 100 mg, Lexapro 10 mg Pressure ulcer in right buttock Wound care consulted Unspecified protein/calorie malnutrition Started ensure and live 237 mL p.o. t.i.d. Code status: Full code DVT prophylaxis: SCD GI prophylaxis: Pantoprazole 40 mg Pain management: Acetaminophen 325 mg/650 mg p.r.n. Diet/nutritiont: Heart healthy diet Prognosis: Guarded Disposition-patient will be monitored in ortho,We spoke with the patients daughter Darcie regarding the patients condition. She is not the patients power of deputy prosecuting attorney (POA), but she expressed willingness to come to the hospital tomorrow for further discussion Juliocesar Cox PGY1-Internal Medicine Resident Date of Service: Mar 23, 2025 Billing Provider: CRISTIAN BAIG MD, SATISH, RES Mar 23, 2025 21:05
[2025-03-23 22:00] VITALS: BP 112/40; PULSE 76; RESP 12; TEMP 97.7; O2SAT 97
[2025-03-24 05:32] LABS: MEAN PLATELET VOLUME 6.8 FL (7.4-10.4); RED CELL DISTRIBUTION WIDTH 15.8 % (11.5-14.5)
[2025-03-24 05:46] LABS: CREATININE 0.71 MG/DL (0.40-0.90); TOTAL CARBON DIOXIDE 36.3 MMOL/L (24-32); eCRCL 73 ML/MIN; eGFR 82 ML/MIN
[2025-03-24 06:00] VITALS: BP 120/41; PULSE 71; RESP 12; TEMP 97.8; O2SAT 97
[2025-03-24 08:00] VITALS: RESP 18; O2SAT 96
[2025-03-24 10:30] VITALS: BP 124/51; PULSE 74; RESP 16; TEMP 97.6; O2SAT 98
[2025-03-24 12:15] VITALS: PULSE 75; RESP 14; O2SAT 91
--- NOTE | 2025-03-24 18:13 | DISCHARGE SUMMARY-Residence ---
Discharge Summary Providers to CC Resident Creating Document: CHUY LINARES, RES ~ Discharge Summary Admission Diagnosis: AMS Hospital Course DATE OF ADMISSION: 03/20/25 DATE OF DISCHARGE: 03/24/25 Discharge Diagnosis\Comment: Altered mental status, most likely due to UTI Acute metabolic encephalopathy 2/2 UTI Right renal stone History of cognitive dysfunction, unknown baseline Acute diastolic heart failure with preserved ejection fraction 60-65 % RVSP-35 mmHg COPD, not in exacerbation Recent history of cholecystitis Diarrhea, probably due to proctocolitis Normocytic hypochromic anemia Likely due to anemia of chronic disease Hyperlipidemia Hypothyroidism History of GERD Anxiety/depression Panic disorder Decubitus ulcer, unable to exclude stage III Unspecified protein/calorie malnutrition Operations\Procedures: None Consultants: Urology Complications: None Condition on DC: Stable Discharge Summary: HPI as per admitting physician: 64-year-old female with history of cognitive dysfunction, recent cholecystitis, COPD, CHF, renal calculus, pulmonary embolism, hypothyroidism came to the ED from nursing facility for complaints of diarrhea. Patient was altered and drowsy, unable to obtain history from patient. History was obtained from ER staff. As per ER physician, patient stated that she was not feeling well and could not provide further history. As per her nursing facility records,she is on 3-4 L oxygen for COPD and Eliquis for pulmonary embolism. It is not clear if patient has urinary symptoms, but urinalysis is positive for UTI. She has no fever. She recently had cholecystitis, but there is no right upper quadrant tenderness. Nursing facility records show dark black stools. Hospital course: The patient, an elderly individual with a history of cognitive dysfunction and baseline confusion, presented with altered mental status (AMS), likely secondary to a urinary tract infection (UTI). Initial assessment revealed a right renal stone ( 2.3cm) with associated [id number]-km-[id number] right hydronephrosis and ureteral hyperemia, suggesting obstructive uropathy leading to infection. Urinalysis was positive for trace leukocyte esterase, numerous white blood cells , 3+ bacteria, and occult blood. Urine cultures later grew Aerococcus urinae, for which infectious disease consultation recommended vancomycin, in addition to ceftriaxone and metronidazole. Blood cultures remained negative, and the patient remained afebrile with stable vital signs and no SIRS criteria. Metabolic encephalopathy was suspected as the cause of AMS, supported by elevated bicarbonate (up to 39.2), but normal electrolytes, lactic acid, and procalcitonin. The BUN/Cr ratio was mildly elevated, likely from dehydration. Chest imaging showed cardiomegaly with pulmonary vascular congestion, and a subsequent echocardiogram revealed mild concentric hypertrophy and preserved ejection fraction (6065%), consistent with acute diastolic heart failure. BNP was elevated at 1346, but troponin levels were normal. The patient required 4L oxygen via nasal cannula, maintaining saturations around 94%, consistent with her known COPD without current exacerbation. CT abdomen/pelvis also revealed other notable findings, including a distended, hydropic gallbladder with wall thickening, pericholecystic stranding, and hyperemiaconcerning for cholecystitis, although the patient had no right upper quadrant tenderness. An abdominal ultrasound was incomplete due to the patient refusing the full exam. Additionally, rectal wall thickening and mucosal hyperemia were seen, likely representing proctocolitis, and the patient had diarrhea. Stool testing was initiated (WBC, ova and parasites, occult blood, culture), and IV Flagyl was started. The patient was also found to have normocytic hypochromic anemia (Hb 8.9), likely anemia of chronic disease, with low serum iron and low transferrin saturation. Malnutrition was another concern; the patient was started on oral nutritional supplementation with Ensure. She also had a pressure ulcer on the right buttock, prompting wound care consultation. From an endocrine perspective, the patient was found to have poorly controlled hypothyroidism, with a TSH of 30.89 and a low-normal free T4. TPO antibodies were ordered, and she was continued on her home dose of levothyroxine (150 mcg daily). Her psychiatric history included anxiety, depression, and panic disorder, and she remained on Lexapro and Trazodone. GI history included GERD and dysphagia; aspiration precautions were in place and IV pantoprazole was administered. Throughout her stay, the patient remained hemodynamically stable, was managed with IV fluids (lactated Ringers), pain control with acetaminophen, and supportive care. Given baseline confusion confirmed by [facility] re[facility] facility, the patient was deemed appropriate for discharge. She was discharged with a 7-day course of Augmentin per infectious disease recommendations and outpatient urology follow-up was arranged. Imaging: Abdominal CT scan: Cholelithiasis with hydropic/ distended gallbladder, gallbladder wall thickening and hyperemia, pericholecystic stranding. Findings are concerning for cholecystitis. Recommend HIDA scan to evaluate. Lexb-xw-qqriiqra right hydronephrosis secondary to a proximal right ureteral /renal pelvic calculus measuring 2.3 cm. There is associated hyperemia of the right ureter likely representing resultant urinary tract infection. Rectal wall thickening, mucosal hyperemia which can be seen with proctocolitis. Multiple other segments of large bowel wall thickening, mucosal hyperemia and surrounding stranding which can be seen with colitis, inflammatory bowel disease. Bilateral lower lobe consolidation/ atelectasis and small to moderate left, tiny right pleural effusions. Small hiatal hernia. Abdominal ultrasound: Pancreas is obscured. Patient refused rest of the examination. Echocardiogram: Normal LV size and function. Mild concentric hypertrophy. LVEF is 60-65%. Right ventricle is mildly dilated. Elevated right heart pressures with an RVSP of 35 mmHg. Left atrium is mild to moderately dilated with adequate function. Trileaflet AV appears mildly sclerotic without stenosis. Trivial insufficiency. Mitral valve leaflets are mildly thickened with mild annular calcification. No stenosis. Trace regurgitation. The tricuspid valve is normal in structure with moderate regurgitation. Pulmonic valve is grossly normal in structure with physiologic insufficiency. Trace loculated pericardial effusion without hemodynamic compromise. No echo indications of pericardial tamponade. Physical examination today: General: Patient is lying in bed, appears somnolent . No signs of acute discomfort. HEENT: Head is atraumatic and normally shaped. Sclera are clear without jaundice; conjunctiva are pink. Oral mucosa is moist. Neck: Trachea is centrally positioned. No jugular venous distension noted. Cardiac: Heart rate and rhythm are regular. No audible murmurs across the chest. Respiratory: Breath sounds are clear and equal on both sides. No rapid breathing, wheezes, crackles, or pleural rubs detected. Gastrointestinal: Abdomen is flat and soft, with no tenderness or distension. Bowel sounds are present and normal. No abnormal masses palpated. Musculoskeletal: No swelling of the lower extremities. No signs of cyanosis. Neurological: Neurological assessment deferred due to patient's drowsy Skin: Skin is warm and dry to the touch. Laboratory Tests Test 03/23/25 04:43 03/23/25 12:40 03/24/25 04:24 White Blood Count 5.9 X10'3 5.5 X10'3 Red Blood Count 3.02 X10'6 3.18 X10'6 Hemoglobin 8.7 g/dl 9.2 g/dl Hematocrit 26.9 % 28.2 % Mean Corpuscular Volume 88.9 FL 88.7 FL Mean Corpuscular Hemoglobin 28.7 PG 28.9 PG Mean Corpuscular Hemoglobin Concent 32.3 g/dL 32.6 g/dL Red Cell Distribution Width 15.8 % 15.8 % Platelet Count 426 X10'3 433 X10'3 Mean Platelet Volume 6.9 FL 6.8 FL Neutrophils (%) (Auto) 79.9 % 78.2 % Lymphocytes (%) (Auto) 6.8 % 7.4 % Monocytes (%) (Auto) 9.4 % 10.4 % Eosinophils (%) (Auto) 2.7 % 2.7 % Basophils (%) (Auto) 1.2 % 1.3 % Neutrophils # (Auto) 4.7 X10'3 4.3 X10'3 Lymphocytes # (Auto) 0.4 X10'3 0.4 X10'3 Monocytes # (Auto) 0.6 X10'3 0.6 X10'3 Eosinophils # (Auto) 0.2 X10'3 0.2 X10'3 Basophils # (Auto) 0.1 X10'3 0.1 X10'3 CBC Comment Sodium Level 141 MMOL/L 141 MMOL/L Potassium Level 4.0 MMOL/L 4.1 MMOL/L Chloride Level 100 MMOL/L 102 MMOL/L Carbon Dioxide Level 36.3 MMOL/L 36.3 MMOL/L Anion Gap 5 3 Blood Urea Nitrogen 12 MG/DL 14 MG/DL Creatinine 0.61 MG/DL 0.71 MG/DL Estimated GFR/1.73 m2 > 90 ML/MIN 82 ML/MIN BUN/Creatinine Ratio 19.7 19.7 Glucose Level 84 MG/DL 91 MG/DL Calcium Level 8.2 MG/DL 8.2 MG/DL Magnesium Level 1.6 MG/DL 1.7 MG/DL Albumin 2.1 G/DL 2.2 G/DL Chemistry Comments Blood Gas Specimen Type Arterial Blood Gas Puncture Site Rr O2 Saturation 93.4 % Arterial Blood pH (Temp corrected) 7.428 Arterial Blood pCO2 (Temp correct) 55.4 mmHg Arterial Blood pO2 (Temp corrected) 69.3 mmHg Arterial Blood PO2/FiO2 Ratio 2.17 mmHg/% Arterial Blood HCO3 35.8 mmol/L Arterial Blood Base Excess 10.1 mmol/L Arterial Blood Oxyhemoglobin 91.2 % Arterial Blood Carboxyhemoglobin 2.2 % Arterial Blood Methemoglobin 0.2 % Arterial Blood Deoxyhemoglobin 6.4 % Chet Test Positive Blood Gas Hemoglobin 8.8 G/dl Blood Gas Temperature 37.0 Blood Gas Liter Flow 3 L/min Blood Gas Modality Nasal cannula FiO2 32.0 mmHg/% Advise on discharge: - outpatient urology follow up for cystoscopy, right retrograde pyelogram, right ureteral stent placement - continue Augmentin p.o. for 7 days - Call 911/go to the nearby ED if any emergencies *Problems/Diagnosis: (1) Ureteral stone Total Time Spent on D/C: > 30 Minutes Date of Service: Mar 24, 2025 Billing Provider: CRISTIAN BAIG MD, GAURAV, RES Mar 24, 2025 18:08
[2025-03-24] MEDS ORDERED: pantoprazole 40mg Tablet.DR PO SCH (20:00)
--- NOTE | 2025-03-24 22:31 | CONSULTATION REPORT ---
Consult Consult Consultation Reason for Consult: Aerococcus urine Consulting Provider: Dr. Murray Antibiotic Days: Rocephin 4, Flagyl 3, Vanco 1 Lines: PIV Micro: 03/20 Blood- ngtd 03/20 Urine- Aerococcus 03/22 Stool- no enteric pathogens HPI: Patient is a 64 year old female with past medical history of nephrolithiasis, cognitive dysfunction who was sent to [facility] from [facility] for altered mental status and dark tarry stools. Upon arrival, she was found to have pyuria and a large R renal stone so she was admitted for urology consultation. Empiric antibiotics included Rocephin/Flagyl as there was incidental cholecystitis and proctocolitis seen on her imaging as well. Yesterday her urine resulted with Aerococcus and so I was contacted and Vanco added; ID was asked to consult. On today's exam, patient answered no to every question I asked so her history is quite questionable. Her baseline is unknown. It is noted that, though she has documented improvement though her hospital stay, she was not consentable for any urologic intervention. Nonetheless, she is Afebrile, without leukocytosis and hemodynamically stable. I was informed that she was being transferred back to [facility] today Past Medical/Surgical History: Recent cholecystitis, Renal calculus, Cognitive dysfunction, CHF, COPD, on 3 L oxygen, Hyperlipidemia, GERD, Dysphagia, Anxiety/depression, Panic disorder, Chronic back pain, Pulmonary embolism, Hypothyroidism, Pressure ulcer of right buttock, , Tubal ligation Current Medications Medications (Trade) Dose Ordered Sig/Felisa Route PRN Reason Start Time Stop Time Status Last Admin Dose Admin Lactated Ringer's 1,000 ml @ 1,000 mls/hr ONCE ONCE IV 03/20/25 10:03/20/25 11:14 DC 03/20/25 10:55 1,000 MLS/HR Ondansetron HCl (Zofran 4mg/2ml vial) 4 mg ONCE ONCE IV 03/20/25 10:15 03/20/25 10:18 DC 03/20/25 10:54 4 MG Ceftriaxone Sodium/Dextrose 50 ml @ 100 mls/hr ONCE ONCE IV 03/20/25 16:30 03/20/25 16:59 DC 03/20/25 17:44 100 MLS/HR Docusate Sodium (Colace capsule) 100 mg BID PO 03/21/25 08:00 03/24/25 17:08 DC 03/24/25 07:35 100 MG Ceftriaxone Sodium 50 ml @ 100 mls/hr DAILY IV 03/21/25 08:00 03/24/25 17:08 DC 03/24/25 07:45 100 MLS/HR Lactated Ringer's 1,000 ml @ 20 mls/hr Q48H IV 03/20/25 20:35 03/21/25 08:05 DC 03/20/25 20:35 20 MLS/HR Furosemide (Lasix inj) 40 mg DAILY IV 03/20/25 22:30 03/21/25 08:13 DC 03/20/25 22:47 40 MG Pantoprazole Sodium (Protonix 40mg IV) 40 mg Q12H IV 03/21/25 08:02 03/24/25 13:59 DC 03/24/25 07:43 40 MG Lactated Ringer's 1,000 ml @ 75 mls/hr [id number] IV 03/21/25 08:15 03/24/25 17:08 DC 03/24/25 07:51 75 MLS/HR Lactose (Ensure Enlive - 237ML) 1 can TIDWM PO 03/21/25 13:00 03/24/25 17:08 DC 03/24/25 13:00 1 CAN Metronidazole/ Sodium Chloride 100 ml @ 100 mls/hr Q8H IV 03/21/25 08:45 03/24/25 14:00 DC 03/24/25 08:55 100 MLS/HR Nystatin (Nystop powder 15GM BOTTLE) 1 applic TID TP 03/21/25 13:00 03/24/25 17:08 DC 03/24/25 13:58 1 APPLIC Levothyroxine Sodium (Synthroid tablet) 150 mcg DAILY@0700 PO 03/22/25 07:00 03/24/25 17:08 DC 03/24/25 07:35 150 MCG Simvastatin (Zocor tablet) 40 mg HS PO 03/21/25 21:38 03/24/25 17:08 DC 03/23/25 20:21 40 MG Escitalopram Oxalate (Lexapro 10mg tablet) 20 mg DAILY PO 03/22/25 08:00 03/24/25 17:08 DC 03/24/25 07:36 20 MG Trazodone HCl (Desyrel tablet) 100 mg HS PO 03/21/25 21:44 03/24/25 17:08 DC 03/23/25 20:21 100 MG Naphazoline HCl/ Pheniramine Maleate (Visine-A eye drops) 2 drop Q6H PRN EACHEYE itching 03/21/25 22:20 03/24/25 17:08 DC 03/22/25 10:19 2 DROP Baclofen (Lioresal tablet) 20 mg BID PO 03/22/25 20:00 03/24/25 17:08 DC 03/24/25 07:35 20 MG Vancomycin HCl 250 ml @ 166 mls/hr Q12H@0200,1400 IV 03/23/25 14:00 03/24/25 17:08 DC 03/24/25 14:33 166 MLS/HR Acetaminophen (Tylenol tablet) 650 mg Q6H PRN PO pain 03/23/25 16:55 03/24/25 17:08 DC 03/23/25 16:57 650 MG Metronidazole (Flagyl tablet) 500 mg Q8H PO 03/24/25 16:00 03/24/25 17:08 DC 03/24/25 15:13 500 MG Social History: Aside from [facility] there seems to be some discrepancies. CM notes do describe 2 children that have been in the loop Family History: Noncontributory ROS: As in HPI, othewise limited Objective: Vitals: Afebrile, 71, 12, 120/41, 97% on 2L General: Alert, looks older than stated age, NAD HEENT: NC/AT, normal conjunctiva, no oral lesions, poor dentition CV: Regular Resp: Clear anteriorly Abd: Soft, nontender, nondistended, no flank pain Skin: No rashes Lines: PIV ok Laboratory Tests 03/24/25 04:24 03/20 CT A/P Cholelithiasis with hydropic/ distended gallbladder, gallbladder wall thickening and hyperemia, pericholecystic stranding. Findings are concerning for cholecystitis. Recommend HIDA scan to evaluate. [id number] right hydronephrosis secondary to a proximal right ureteral /renal pelvic calculus measuring 2.3 cm. There is associated hyperemia of the right ureter likely representing resultant urinary tract infection. Rectal wall thickening, mucosal hyperemia which can be seen with proctocolitis. Multiple other segments of large bowel wall thickening, mucosal hyperemia and surrounding stranding which can be seen with colitis, inflammatory bowel disease. Bilateral lower lobe consolidation/ atelectasis and small to moderate left, tiny right pleural effusions. Small hiatal hernia. Assessment: // Aerococcus complicated UTI // Nephrolithiasis - has recommendation for urology intervention once consentable // Cholelithiasis // Proctocolitis // Encephalopathy - baseline unclear. Supposedly this has improved since admission // Antibiotic Allergies: erythromycin Plan: - Recommend an additional week of Augmentin - Appreciate plans for outpatient follow up with urology - Thank you for the chance to participate in your patient's care EDEN LENTZ DO Mar 24, 2025 22:31
[2025-03-25] MEDS ORDERED: VANCOMYCIN LEVEL IV ONE (01:30)
== END 2025-03-24 17:08 | DRG 70 ==
LOC: ER 09:35 → ED HOLD 20:00 → UNDOADMIN 20:00 → ED HOLD 21:25 → UNDOADMIN 21:25 → ED HOLD 03-21 00:18 → ORTHO 4S 03-21 01:43
PROVIDERS: ADMIT Internal Medicine; ATTEND Family Medicine
PROC: BW211ZZ Computerized Tomography (CT Scan) of Abdomen and Pelvis using Low Osmolar Contrast (ICD-10-PCS; principal; 2025-03-20)
DX: G93.41 Metabolic encephalopathy (principal); I50.33 Acute on chronic diastolic (congestive) heart failure; L89.313 Pressure ulcer of right buttock, stage 3; N13.6 Pyonephrosis; K51.30 Ulcerative (chronic) rectosigmoiditis without complications; J98.11 Atelectasis; K80.10 Calculus of gallbladder with chronic cholecystitis without obstruction; E46 Unspecified protein-calorie malnutrition; N20.2 Calculus of kidney with calculus of ureter; Z20.822 Contact with and (suspected) exposure to COVID-19; I11.0 Hypertensive heart disease with heart failure; E86.0 Dehydration; J44.9 Chronic obstructive pulmonary disease, unspecified; F32.A Depression, unspecified; F41.0 Panic disorder [episodic paroxysmal anxiety]; G89.29 Other chronic pain; M54.9 Dorsalgia, unspecified; K21.9 Gastro-esophageal reflux disease without esophagitis; N28.1 Cyst of kidney, acquired; D63.8 Anemia in other chronic diseases classified elsewhere; E78.5 Hyperlipidemia, unspecified; E03.9 Hypothyroidism, unspecified; Z82.5 Family history of asthma and other chronic lower respiratory diseases; Z79.899 Other long term (current) drug therapy; Z86.711 Personal history of pulmonary embolism; Z87.442 Personal history of urinary calculi; Z88.1 Allergy status to other antibiotic agents; Z99.81 Dependence on supplemental oxygen; Z88.8 Allergy status to other drugs, medicaments and biological substances; Z68.27 Body mass index [BMI] 27.0-27.9, adult
CPT/HCPCS: 36415; 36600; 71045; 74177; 76700; 80048; 80053; 80061; 80305; 81001; 82140; 82272; 82728; 82803; 82948; 83036; 83540; 83550; 83605; 83690; 83735; 83880; 84100; 84145; 84439; 84443; 84466; 84484; 85018; 85025; 85379; 85610; 85730; 86376; 87040; 87045; 87046; 87077; 87081; 87088; 87186; 87811; 89055; 92508; 92616; 93005; 93306; 94760; 96361; 96365; 96375; 99285; A6154; A6213; C1758; G0378; J0696; J1938; J2405; J2470; J3373; J3490; J7120; Q9967